=== PATIENT | male | born 1955 ===

== ENCOUNTER → 2016-08-30 | Outpatient (REF) | LOC: ZLAB.WCH 10:26 | DX: Z01.89 Encounter for other specified special examinations (principal) | CPT/HCPCS: G0103 ==

== ENCOUNTER → 2017-07-24 | Outpatient (REF) | LOC: ZLAB.WCH 16:23 | DX: Z01.89 Encounter for other specified special examinations (principal) | CPT/HCPCS: G0103 ==

== ENCOUNTER → 2018-06-11 | Outpatient (REF) ==
[2018-06-11 17:03] LABS: THYROID STIMULATING HORMONE 1.4 uIU/mL (0.465-4.680)
[2018-06-11 17:14] LABS: PSA-TOTAL 0.57 ng/mL (0-4)
== END ==
LOC: ZLAB.WCH 16:15
PROVIDERS: Physician Assistant
DX: Z01.89 Encounter for other specified special examinations (principal)
CPT/HCPCS: G0103